=== PATIENT | male | born 1975 | race Two or more races ===

== ENCOUNTER 2016-10-31 16:09 | Emergency (ER) | payer BC ==
--- NOTE | ~2016-10-31 | CT71 ---
[facility] A Service of [facility] RADIOLOGY TEXT RESULTS PATIENT: MAILE JOYCE LOCATION: [place] : [birth year] UNIT #: [id number] AGE: [address]: Ina Gallegos MD SEX: M ORDER DR: [id number] [facility]. [place], [place] [address] [id number] MR#: [id number] Acc #: [id number] NAME: MAILE JOYCE : 1975 SEX: M STUDY DATE/TIME: 10/31/2016 19:00 UNIT: [facility] ROOM: STUDY DESCRIPTION: CT Head Wo Contrast Attending Physician: Ina Gallegos M.D. Ordering Physician: Ina Gallegos M.D. Primary Care Physician: No Primary Care Physician MEDICAL IMAGING REPORT This report is preliminary unless electronic signature is present EXAM CT head 10/31/2016 HISTORY Dizzy off and on for 1 month. No trauma. Headache and blurred vision with increased dizziness within past [address] exam was performed with one or more of the following radiation dose reduction techniques: automatic control, adjustment of mA and/or kV according to patient size, and iterative reconstruction. FINDINGS CT head performed skull base through vertex without intravenous contrast. No comparisons. Brainstem unremarkable. Cerebellum and cerebral hemispheres show normal harman matter - white matter differentiation. No hemorrhage. No evidence of acute cortical ischemia. Midline structures nondisplaced. Basal ganglia intact. Ventricles, cisterns, sulci normal in size and contour. No intra or extraaxial mass effect or abnormal intracranial fluid collection. The intraorbital soft tissues are unremarkable. The visualized paranasal sinuses and mastoid air cells are clear. No fracture. IMPRESSION 1. The brain appears normal. If patient has ongoing neurologic symptoms, consider follow up imaging, preferably with MRI if patient is a candidate. 2. Remainder of study unremarkable. Dictated by... Figueroa Coulter M.D. [facility] A Service of [facility] RADIOLOGY TEXT RESULTS PATIENT: MAILE JOYCE LOCATION: [place] : [birth year] UNIT #: [id number] AGE: [address]: Ina Gallegos MD SEX: M ORDER DR: THIS IS AN ELECTRONICALLY VERIFIED REPORT Figueroa Coulter M.D. at 11/02/2016 10:44 PM IRENE/luke TD: 11/01/2016 04:30 JOB #: [id number] MEDICAL IMAGING REPORT Page 1 of 1 COPY
--- NOTE | ~2016-10-31 | EKG ---
PATIENT: MAILE JOYCE UNIT #: [id number] Ventricular Rate: 82 BPM Atrial Rate: 82 BPM P-R Interval: 168 ms QRS Duration: 72 ms Q-T Interval: 368 ms QTC Calculation(Bezet): 429 ms P [place]: 44 degrees Calculated R [place]: 49 degrees Calculated T [place]: 25 degrees Diagnosis Line: Normal sinus rhythm Diagnosis Line: Normal ECG Diagnosis Line: No previous ECGs available Diagnosis Line: Confirmed by DEJON KULKARNI MD ([id number]) on Diagnosis Line: 11/01/2016 1:49:21 PM INTERPRETING MD: ESTEBAN
[2016-10-31 17:17] LABS: BASOPHIL% 0.4 % (0-2.5); EOSINOPHIL# 0.1 X10e3 (0-0.7); HEMATOCRIT 46.5 % (38.0-50.0); HEMOGLOBIN 15.4 gm/dL (13.0-16.0); LYMPHOCYTE# 1.7 X10e3 (1.0-3.5); LYMPHOCYTE% 23.5 % (17.0-45.0); MEAN CELL VOLUME 91.9 FL (83-96); MEAN CORPUSCULAR HEMOGLOBIN 30.5 PG (28-34); MEAN CORPUSCULAR HGB CONC 33.2 g/dL (30-36); MEAN PLATELET VOLUME 8.9 FL (6.5-11.5); MONOCYTE# 0.7 X10e3 (0-1.0); MONOCYTE% 10.1 % (3.0-12.0); NEUTROPHIL# 4.6 X10e3 (1.5-7.1); PLATELET COUNT 196 X10e3 (140-420); RED BLOOD COUNT 5.06 X10e (3.90-5.60); RED CELL DISTRIBUTION WIDTH 13.4 % (11.0-15.5); WHITE BLOOD COUNT 7.1 X10e3 (4.0-10.5)
[2016-10-31 17:20] LABS: DIFF IND NO
[2016-10-31 17:28] LABS: ALBUMIN SERUM 4.7 g/dL (3.5-5.0); BILIRUBIN, DIRECT 0.1 mg/dL (0.0-0.2); BILIRUBIN,INDIRECT 1.4 mg/dL (0.0-0.9); BILIRUBIN,TOTAL 1.5 mg/dL (0.2-2.0); BUN/CREATININE RATIO 15.55; CALCIUM SERUM 9.2 mg/dL (8.4-10.2); CREATININE SERUM 0.9 mg/dL (0.6-1.4); GLOM FILT RATE Estimated 104.2 mL/min (>60); POTASSIUM 3.7 mmol/L (3.5-5.1); PROTEIN TOTAL SERUM 8.3 g/dL (6.0-8.3)
[2016-10-31 20:05] LABS: POC - CKMB <1.0 ng/mL (0.0-7.9); POC - TROPONIN <0.05 ng/mL (<=0.05)
[2016-10-31 20:11] LABS: POC - CKMB <1.0 ng/mL (0.0-7.9); POC - TROPONIN <0.05 ng/mL (<=0.05)
[2016-10-31 20:19] LABS: URINE SOURCE CLEAN CATCH
[2016-10-31 20:25] LABS: URINE APPEARANCE CLEAR; URINE BILIRUBIN NEG (NEG); URINE BLOOD NEG (NEG); URINE COLOR YELLOW; URINE GLUCOSE NEG (NEG); URINE KETONE TRACE (NEG); URINE LEUKOCYTE ESTERASE NEG (NEG); URINE NITRATE NEG (NEG); URINE PROTEIN NEG (NEG); URINE SPECIFIC GRAVITY 1.019 (1.003-1.035)
[2016-10-31 20:30] LABS: CULTURE INDICATED? NO
== END 2016-10-31 21:22 | disposition home or self-care (01) ==
LOC: CED 16:09
PROVIDERS: Emergency Medicine
DX: R42 Dizziness and giddiness (principal)
CPT/HCPCS: 36415; 70450; 80048; 80076; 81003; 82553; 84484; 85025; 93005; 99284